=== PATIENT | female | born 1985 | race Caucasian/White ===

== ENCOUNTER 2021-07-04 09:57 | Outpatient (CLI) | payer BC | END 2021-07-04 09:58 | disposition home or self-care (01) | LOC: CSHRAD 09:57 | PROVIDERS: ATTEND Family Medicine | DX: Z01.818 Encounter for other preprocedural examination (principal) | CPT/HCPCS: 71046 ==

== ENCOUNTER 2022-07-15 18:00 | Inpatient (IN) | payer BC ==
[~2022-07-15 18:00] MED LIST: Bupivacaine/Epinephrine 0.25% 30 ML VIAL ONE
[2022-07-15] MEDS ORDERED: hydrALAZINE 20 MG/ML VIAL SLOW IVP PRN (20:16)
[2022-07-15] MEDS ORDERED: Zolpidem Tartrate 5 MG TAB PO PRN (20:16)
[2022-07-15] MEDS ORDERED: Acetaminophen 500 MG TAB PO PRN (20:16)
[2022-07-15] MEDS ORDERED: Butorphanol Tartrate 1 MG/ML VIAL SLOW IVP PRN (20:16)
[2022-07-15] MEDS ORDERED: Promethazine HCl 25 MG/ML VIAL IM PRN (20:16)
[2022-07-15] MEDS ORDERED: Docusate 100 MG CAP PO PRN (20:16)
[2022-07-15] MEDS ORDERED: HYDROcodone/Acetaminophen 5/325 mg Tablet PO PRN ×2 (20:16)
[2022-07-15] MEDS ORDERED: Ibuprofen 800 MG TAB PO PRN (20:16)
[2022-07-15] MEDS ORDERED: Lidocaine 1% (PF) 30 ML VIAL SC PRN (20:16)
[2022-07-15] MEDS ORDERED: Ondansetron PF 4 MG/2 ML Vial IVP PRN (20:16)
[2022-07-15] MEDS ORDERED: Misoprostol 200 MCG TAB PR PRN (20:16)
[2022-07-15] MEDS ORDERED: Diphenoxylate HCl/Atropine Tablet PO PRN ×2 (20:16)
[2022-07-15 20:18] VITALS: BMI 32.3
[2022-07-15 20:49] LABS: Hemoglobin 11.7 g/dL (12.0-15.5); Mean Corpuscular HGB CONC 35.5 g/dL (32.0-36.0); Mean Corpuscular Hemoglobin 32.8 pg (27.0-33.0); Mean Corpuscular Volume 92.4 fl (81.6-98.3); Mean Platelet Volume 11.3 fl (7.4-10.4); Platelet Count 257 10x3/uL (150-450); Red Blood Cell (RBC) Count 3.57 10x6/uL (3.90-5.03); White Blood Cell (WBC) Count 9.2 10x3/uL (3.5-10.5)
[2022-07-15] MEDS ORDERED: Misoprostol 100 MCG TAB ONE (20:51)
[2022-07-15] MEDS ORDERED: NS w/ Oxytocin 30 units 500 ML IV SCH ×2 (21:00)
[2022-07-15] MEDS: Misoprostol 100 MCG TAB VAG SCH (21:06)
[2022-07-15] MEDS: Lactated Ringer's 1,000 ML IV SCH (21:06)
[2022-07-15 22:13] LABS: HBSAg Index 0.13 S/CO (0-0.99); HIV (1/2) Antibody/Antigen Non-Reactive (NonReactive); HIV 1/2 INDEX 0.11 S/CO (<1.00); Hep B Surf Ag Non-Reactive S/CO (NonReactive)
[2022-07-15 22:15] LABS: Syphilis Antibody Nonreactive (Nonreactive); Syphilis Antibody Index 0.02 S/CO (<1.00 Non-Reactive)
[2022-07-15 23:07] LABS: SARS-CoV-2 NAA Rapid Test Not Detected (NotDetected)
[2022-07-16] MEDS ORDERED: Fentanyl 2 mcg/Bup 0.1% Cadd 100 ML ONE (00:58)
[2022-07-16] MEDS: Lactated Ringer's 1,000 ML IV SCH (01:57)
[2022-07-16] MEDS ORDERED: ePHEDrine Sulfate 50 MG/10 ML VIAL SLOW IVP PRN (02:01)
[2022-07-16] MEDS ORDERED: Acetaminophen 325 MG TAB PO PRN (02:01)
[2022-07-16] MEDS ORDERED: Promethazine HCl 25 MG/ML VIAL IM PRN (02:01)
[2022-07-16] MEDS ORDERED: Ondansetron PF 4 MG/2 ML Vial IVP PRN ×2 (02:01→09:38)
[2022-07-16] MEDS ORDERED: diphenhydrAMINE 50 MG/ML VIAL IVP PRN (02:01)
[2022-07-16] MEDS ORDERED: Moisturizing Cream (Eucerin) 113 GM JAR TOP PRN (02:01)
[2022-07-16] MEDS ORDERED: Naloxone HCl 0.4 mg/ml Vial IVP PRN ×2 (02:01)
[2022-07-16] MEDS ORDERED: Lactated Ringer's 500 ML IV PRN (02:01)
[2022-07-16] MEDS ORDERED: Communication Order-Pharmacy FS SCH (02:15)
[2022-07-16] MEDS ORDERED: Fentanyl 2 mcg/Bupivacaine 0.1% Cassette 100 ML EPIDURAL SCH (02:15)
[2022-07-16] MEDS ORDERED: Carboprost 250 MCG/ML AMP ONE (09:27)
[2022-07-16] MEDS ORDERED: Methylergonovine 0.2 MG/ML VIAL ONE (09:27)
[2022-07-16] MEDS ORDERED: Preparation H Ointment 28 GM TUBE PR PRN (09:38)
[2022-07-16] MEDS ORDERED: Benzocaine-Menthol 82.5 ML CAN TOP PRN (09:38)
[2022-07-16] MEDS ORDERED: Lanolin Ointment 7 GM TUBE TOP PRN (09:38)
[2022-07-16] MEDS ORDERED: Bisacodyl 10 MG SUPP PR PRN (09:38)
[2022-07-16] MEDS ORDERED: Boostrix 0.5 ML (Tdap) VIAL (>/=7 yrs of age) IM ONE (09:38)
[2022-07-16] MEDS ORDERED: hydrALAZINE 20 MG/ML VIAL SLOW IVP PRN (09:38)
[2022-07-16] MEDS ORDERED: Misoprostol 200 MCG TAB VAG PRN (09:38)
[2022-07-16] MEDS ORDERED: diphenhydrAMINE 25 MG CAP PO PRN (09:38)
[2022-07-16] MEDS ORDERED: Milk Of Magnesia 30 ML UDCUP PO PRN (09:38)
[2022-07-16] MEDS ORDERED: Witch Hazel-Glycerin 1 EACH JAR TOP PRN (09:42)
[2022-07-16] MEDS ORDERED: NS w/ Oxytocin 30 units 500 ML IV SCH (09:45)
[2022-07-16] MEDS: Misoprostol 100 MCG TAB VAG SCH ×2 (12:33→12:34)
[2022-07-16] MEDS: Ibuprofen 800 MG TAB PO SCH ×2 (13:48→21:48)
[2022-07-16] MEDS: Ferrous Sulfate 325 MG TAB PO SCH (15:26)
[2022-07-16] MEDS ORDERED: HYDROcodone/Acetaminophen 5/325 mg Tablet PO PRN ×2 (16:06→16:07)
[2022-07-16] MEDS ORDERED: Zolpidem Tartrate 5 MG TAB PO PRN (16:07)
[2022-07-16] MEDS: Docusate 100 MG CAP PO SCH (21:48)
[2022-07-17 04:41] LABS: Hemoglobin 10.4 g/dL (12.0-15.5); Mean Corpuscular HGB CONC 35.5 g/dL (32.0-36.0); Mean Corpuscular Hemoglobin 33.4 pg (27.0-33.0); Mean Corpuscular Volume 94.2 fl (81.6-98.3); Mean Platelet Volume 11.1 fl (7.4-10.4); Platelet Count 196 10x3/uL (150-450); RBC Distribution Width 13.3 % (11.5-14.5); Red Blood Cell (RBC) Count 3.11 10x6/uL (3.90-5.03); White Blood Cell (WBC) Count 11.9 10x3/uL (3.5-10.5)
[2022-07-17] MEDS: Ibuprofen 800 MG TAB PO SCH ×2 (06:01→13:20)
[2022-07-17 07:58] VITALS: BP 106/68; TEMP 98
[2022-07-17] MEDS: Ferrous Sulfate 325 MG TAB PO SCH (08:35)
[2022-07-17] MEDS: Docusate 100 MG CAP PO SCH (08:36)
[2022-07-17] MEDS ORDERED: Prenatal Vitamin 1 TAB PO SCH (09:00)
== END 2022-07-17 14:40 | disposition home or self-care (01) | DRG 806 ==
LOC: CSHLD 19:27 → CSHPP 07-16 12:15
PROVIDERS: ADMIT Obstetrics & Gynecology; ATTEND Obstetrics & Gynecology
PROC: 10E0XZZ Delivery of Products of Conception, External Approach (ICD-10-PCS; principal; 2022-07-16)
PROC: 3E0P7VZ Introduction of Hormone into Female Reproductive, Via Natural or Artificial Opening (ICD-10-PCS; 2022-07-16)
DX: O99.02 Anemia complicating childbirth (principal); O72.1 Other immediate postpartum hemorrhage; Z37.0 Single live birth; O42.02 Full-term premature rupture of membranes, onset of labor within 24 hours of rupture; D64.9 Anemia, unspecified; Z20.822 Contact with and (suspected) exposure to COVID-19; Z98.890 Other specified postprocedural states; Z3A.40 40 weeks gestation of pregnancy; Z79.84 Long term (current) use of oral hypoglycemic drugs
CPT/HCPCS: 36415; 51702; 85027; 86780; 86850; 86900; 86901; 87340; 87389; J7120; U0002